=== PATIENT | male | born 1975 | race Caucasian/White ===

== ENCOUNTER 2017-05-26 17:50 | Emergency (ER) | payer MEDICARE, MEDICAID ==
[~2017-05-26] VITALS: Ht 167.6 cm; Wt 70.0 kg
[~2017-05-26 17:50] MED LIST: BACT2OIN TOP; FENO160T2 PO; LITH300 PO; OLAN10IN IM; RANI150T PO; WELL200T PO; [UNRECOGNIZED DRUG - CODE] PO
[2017-05-26 17:52] VITALS: BP 129/93; PULSE 96; RESP 18; TEMP 98.1; O2SAT 99
[2017-05-26] MEDS ORDERED: SODIUM CHLOR 0.9% 1000 ML INJ 1,000 ML IV SCH (22:31)
--- NOTE | 2017-05-26 22:35 | PD ---
HPI Chief Complaint: Medical Clearance Time Seen by Provider: 22:27 Travel History International Travel<30 days: No Contact w/Intl Traveler<30days: No Traveled to known affect area: No History of Present Illness HPI 41-year-old male that presents to the ED for evaluation of tremors. Per staff from [facility] patient has had this tremors to his never had before. Patient gets episodes of shaking. Apparently the social service manager was involved and they contacted his doctor who was concerned about his lithium level. He does take lithium chronically. He has a history pertinent schizophrenia as well as bipolar and takes medications for this. He denies taking any more of this medications. He denies any chest pain or shortness of breath. There were sure that he was dehydrated as well as his been outside a lot. He comes here for evaluation of this. No head injury or pain. No drugs or alcohol to he does drink beer on occasion. He has no allergies to medication. There were concerned mainly about lithium toxicity. He denies ever having anything like this before. No other issues reported. No suicidal or homicidal ideation. He states that he is compliant with his meds. PFSH Past Medical History Asthma: Yes Anxiety: No Depression: No Cancer: No Cardiovascular Problems: No Diabetes: No Diminished Hearing: No Endocrine: No Genitourinary: No Headaches: Yes Immune Disorder: No Musculoskeletal: No Neurologic: No Psychiatric: Yes Reproductive: No Respiratory: Yes Schizophrenia: Yes PNEUMOCCOCAL Vaccine (Year): 3 Social History Alcohol Use: No Tobacco Use: Yes (/ PPD) Substance Use: No Allergies-Medications (Allergen,Severity, Reaction): Coded Allergies: No Known Allergies (Verified , 02/19/16) Reported Meds & Prescriptions Reported Meds & Active Scripts Active Fish Oil Burp-Less ([place]-3 Fatty Acids) 1,000 Mg Cap 1,000 Mg PO DAILY@1600 Bactroban 2% Oint (22 gm) (Mupirocin) 22 Gm Oint 2 % TOP BID APPLY TO AFFECTED AREAS Bactroban 2% Oint (22 gm) (Mupirocin) 22 Gm Oint 1 Applic TOP BID APPLY TO AFFECTED AREAS Reported Wellbutrin Sr (Bupropion Hcl) 200 Mg Tab 200 Mg PO DIRECTED Olanzapine 10 Mg Inj 10 Mg IM HS Ranitidine 150 mg (Ranitidine HCl) 150 Mg Tab 1 Tab PO DAILY Fellows Carbonate Er (Fellows Carbonate) 300 Mg Tab 300 Mg PO DAILY Fenofibrate 160 Mg Tab 160 Mg PO DAILY Review of Systems Except as stated in HPI: all other systems reviewed are Neg Physical Exam Narrative GENERAL: SKIN: Warm and dry. HEAD: Atraumatic. Normocephalic. EYES: Pupils equal and round. No scleral icterus. No injection or drainage. ENT: No nasal bleeding or discharge. Mucous membranes pink and moist. Tongue is midline. No uvula deviation. NECK: Trachea midline. No JVD. CARDIOVASCULAR: Regular rate and rhythm. RESPIRATORY: No accessory muscle use. Clear to auscultation. Breath sounds equal bilaterally. GASTROINTESTINAL: Abdomen soft, non-tender, nondistended. Hepatic and splenic margins not palpable. MUSCULOSKELETAL: Extremities without clubbing, cyanosis, or edema. No obvious deformities. Full range of motion of the upper and lower extremities bilaterally. 2+ pulses bilaterally. NEUROLOGICAL: Awake and alert. No obvious cranial nerve deficits. Motor grossly within normal limits. Five out of 5 muscle strength in the arms and legs. Normal speech. PSYCHIATRIC: Appropriate mood and affect; insight and judgment normal. Data Data Last Documented VS Vital Signs Date Time Temp Pulse Resp B/P (MAP) Pulse Ox O2 Delivery O2 Flow Rate FiO2 05/26/17 17:52 98.1 96 18 129/93 (105) 99 Room Air Orders Orders Complete Blood Count With Diff (05/26/17 22:26) Comprehensive Metabolic Panel (05/26/17 22:26) Magnesium (Mg) (05/26/17 22:26) Fellows (Li) (05/26/17 22:26) Thyroid Stimulating Hormone (05/26/17 22:26) Iv Access Insert/Monitor (05/26/17 22:26) Drug Screen, Random Urine (05/26/17 22:26) Alcohol (Ethanol) (05/26/17 22:26) Salicylates (Aspirin) (05/26/17 22:26) Tylenol (Acetaminophen) (05/26/17 22:26) Sodium Chlor 0.9% 1000 Ml Inj (Ns 1000 M (05/26/17 22:31) MDM Medical Decision Making Medical Screen Exam Complete: Yes Emergency Medical Condition: Yes Medical Record Reviewed: Yes Differential Diagnosis Tremor versus lithium toxicity versus electron abnormality versus dehydration versus normal exam versus medication side effect Narrative Course 40-year-old male that presents to the ED for evaluation of possible tremor. Patient was properly examined and was found to have signs and symptoms for cardiology. Patient does not have a tremor on my examination. Apparently This comes and goes and is severe per staff member. He had actually one just an hour ago. Patient does take lithium there is concern for toxicity. Labs were ordered. Patient was given IV fluids. Case will be signed out to my attending pending disposition. Raffi Portillo May 26, 2017 22:35
[2017-05-26] MEDS ORDERED: OLAN10TA PO (22:38)
[2017-05-26] MEDS ORDERED: LITH300C2 PO (22:38)
[2017-05-26] MEDS ORDERED: WELL200T PO (22:38)
[2017-05-26 22:41] VITALS: BP 107/64; PULSE 76; RESP 18; O2SAT 100
--- NOTE | 2017-05-26 22:54 | PD ---
Physical Exam Date Seen by Provider: May 26, 2017 Time Seen by Provider: 22:52 Narrative accepted in transfer of care GENERAL: Well developed well-nourished male in no acute distress no respiratory distress; GCS 15 SKIN: Warm and dry. HEAD: Normocephalic. EYES: No scleral icterus. No injection or drainage. NECK: Supple, trachea midline. No JVD or lymphadenopathy. CARDIOVASCULAR: Regular rate and rhythm without murmurs, gallops, or rubs. RESPIRATORY: Breath sounds equal bilaterally. No accessory muscle use. GASTROINTESTINAL: Abdomen soft, non-tender, nondistended. MUSCULOSKELETAL: No cyanosis, or edema. Motor strength 5 over 5 lateral upper extremity and lower extremity. No tremor bilateral upper extremity and lower extremity. Data Data Last Documented VS Vital Signs Date Time Temp Pulse Resp B/P (MAP) Pulse Ox O2 Delivery O2 Flow Rate FiO2 05/26/17 22:41 76 18 107/64 (78) 100 Room Air 05/26/17 17:52 98.1 Orders Orders Complete Blood Count With Diff (05/26/17 22:26) Comprehensive Metabolic Panel (05/26/17 22:26) Magnesium (Mg) (05/26/17 22:26) Cumby (Li) (05/26/17 22:26) Thyroid Stimulating Hormone (05/26/17 22:26) Iv Access Insert/Monitor (05/26/17 22:26) Drug Screen, Random Urine (05/26/17 22:26) Alcohol (Ethanol) (05/26/17 22:26) Salicylates (Aspirin) (05/26/17 22:26) Tylenol (Acetaminophen) (05/26/17 22:26) Sodium Chlor 0.9% 1000 Ml Inj (Ns 1000 M (05/26/17 22:31) [place] Carbonate (Lithotabs) (05/27/17 00:45) Labs Laboratory Tests Test 05/26/17 22:45 05/26/17 22:50 White Blood Count 11.0 TH/MM3 Red Blood Count 4.73 MIL/MM3 Hemoglobin 14.6 GM/DL Hematocrit 43.1 % Mean Corpuscular Volume 91.0 FL Mean Corpuscular Hemoglobin 30.9 PG Mean Corpuscular Hemoglobin Concent 33.9 % Red Cell Distribution Width 13.9 % Platelet Count 311 TH/MM3 Mean Platelet Volume 7.9 FL Neutrophils (%) (Auto) 49.7 % Lymphocytes (%) (Auto) 40.6 % Monocytes (%) (Auto) 4.7 % Eosinophils (%) (Auto) 4.3 % Basophils (%) (Auto) 0.7 % Neutrophils # (Auto) 5.5 TH/MM3 Lymphocytes # (Auto) 4.4 TH/MM3 Monocytes # (Auto) 0.5 TH/MM3 Eosinophils # (Auto) 0.5 TH/MM3 Basophils # (Auto) 0.1 TH/MM3 CBC Comment DIFF FINAL Differential Comment Blood Urea Nitrogen 7 MG/DL Creatinine 1.01 MG/DL Random Glucose 101 MG/DL Total Protein 7.6 GM/DL Albumin 4.1 GM/DL Calcium Level 8.7 MG/DL Magnesium Level 2.2 MG/DL Alkaline Phosphatase 74 U/L Aspartate Amino Transf (AST/SGOT) 12 U/L Alanine Aminotransferase (ALT/SGPT) 19 U/L Total Bilirubin 0.4 MG/DL Sodium Level 140 MEQ/L Potassium Level 3.7 MEQ/L Chloride Level 106 MEQ/L Carbon Dioxide Level 30.6 MEQ/L Anion Gap 3 MEQ/L Estimat Glomerular Filtration Rate 81 ML/MIN Thyroid Stimulating Hormone 3rd Gen 2.750 uIU/ML Salicylates Level 3.3 MG/DL Acetaminophen Level LESS THAN 2.0 MCG/ML [place] Level 0.4 MEQ/L Ethyl Alcohol Level LESS THAN 3 MG/DL Urine Opiates Screen NEG Urine Barbiturates Screen NEG Urine Amphetamines Screen NEG Urine Benzodiazepines Screen NEG Urine Cocaine Screen NEG Urine Cannabinoids Screen NEG MDM Medical Record Reviewed: Yes Supervised Visit with ASHLEY: Yes Interpretation(s) CBC & BMP Diagram 05/26/17 22:45 Total Protein 7.6, Albumin 4.1, Calcium Level 8.7, Magnesium Level 2.2, Alkaline Phosphatase 74, Aspartate Amino Transf (AST/SGOT) 12 L, Alanine Aminotransferase (ALT/SGPT) 19, Total Bilirubin 0.4 Vital Signs Date Time Temp Pulse Resp B/P (MAP) Pulse Ox O2 Delivery O2 Flow Rate FiO2 05/26/17 22:41 76 18 107/64 (78) 100 Room Air 05/26/17 17:52 98.1 96 18 129/93 (105) 99 Room Air TSH: 2.750 within normal range Serum alcohol: Less than 3, not elevated Acetaminophen level less than 2.0, not elevated Salicylate level 3.0, not elevated Urine drug screen negative Differential Diagnosis tremor, dehydration, lithium toxicity, seizure Narrative Course accepted in transfer of care from Az Portillo PA-C At 12:42 AM lab values are resulted and found to be essentially gross within normal range and lithium level is not toxic at 0.4. Patient has not received his evening dose of lithium is given that here in the emergency department. Patient remained asymptomatic in the emergency department there is been no witnessed seizure activity and no witnessed tremor. Patient is stable to return to his residence. Diagnosis Primary Impression: Tremor Referrals: Primary Care Physician call for appointment Psychiatrist call for appointment Patient Instructions: General Instructions Additional Instruction: Continue current medications as presently prescribed Follow-up with her specialist Return to the emergency department for any concerns Disposition: 01 DISCHARGE HOME Condition: Stable Misti Sarabia MD May 26, 2017 22:54
[2017-05-26 23:07] LABS: AUTOMATED NEUTROPHIL # 5.5 TH/MM3 (1.8-7.7); BASOPHIL # 0.1 TH/MM3 (0-0.2); BASOPHIL % 0.7 % (0.0-2.0); EOSINOPHIL # 0.5 TH/MM3 (0-0.4); EOSINOPHIL % 4.3 % (0.0-4.0); HEMATOCRIT 43.1 % (39.0-51.0); HEMO FLAGS DIFF FINAL; LYMPH % 40.6 % (9.0-44.0); LYMPHOCYTE # 4.4 TH/MM3 (1.0-4.8); MEAN CORPUSCULAR HEMOGLOBIN 30.9 PG (27.0-34.0); MEAN CORPUSCULAR HGB CONC 33.9 % (32.0-36.0); MONO % 4.7 % (0.0-8.0); NEUT % 49.7 % (16.0-70.0); PLATELET COUNT 311 TH/MM3 (150-450); RED BLOOD COUNT 4.73 MIL/MM3 (4.50-5.90); RED CELL DISTRIBUTION WIDTH 13.9 % (11.6-17.2)
[2017-05-26 23:37] LABS: ANION GAP 3 MEQ/L (5-15); AST (GOT) 12 U/L (15-37); BICARBONATE 30.6 MEQ/L (21.0-32.0); BLOOD UREA NITROGEN 7 MG/DL (7-18); CHLORIDE 106 MEQ/L (98-107); GLOMERULAR FILTRATION RATE 81 ML/MIN (>89); MAGNESIUM 2.2 MG/DL (1.5-2.5); POTASSIUM 3.7 MEQ/L (3.5-5.1); SODIUM (NA) 140 MEQ/L (136-145)
[2017-05-26 23:47] LABS: ALKALINE PHOSPHATASE 74 U/L (45-117); ALT (GPT) 19 U/L (12-78); TOTAL BILIRUBIN ADULT 0.4 MG/DL (0.2-1.0)
[2017-05-26 23:52] LABS: ACETAMINOPHEN LESS THAN 2.0 MCG/ML (10.0-30.0); ALCOHOL LESS THAN 3 MG/DL (0-5)
[2017-05-27] MEDS ORDERED: LITHIUM CARBONATE 300 MG TAB PO ONE (00:45)
== END 2017-05-27 01:13 | disposition home or self-care (01) ==
LOC: NETRI 17:50 → NEPC 17:50 → NETRI 20:52 → NEPC 05-27 01:13
DX: R25.1 Tremor, unspecified (principal); J45.909 Unspecified asthma, uncomplicated; Z72.0 Tobacco use; Z79.899 Other long term (current) drug therapy
CPT/HCPCS: 80053; 80178; 80307; 83735; 84443; 85025; 99283; J7030